=== PATIENT | female | born 1980 | race Caucasian/White ===

== ENCOUNTER 2016-11-22 13:48 | Emergency (ER) | payer OTHER ==
[~2016-11-22] VITALS: Ht 162.6 cm; Wt 72.6 kg
--- NOTE | 2016-11-22 14:33 | RAD ---
Indication injury several days earlier. Pain. AP oblique and lateral views of the left ankle were obtained. No acute or significant bony finding is seen. There is a well-corticated small bone fragment adjacent to the tip of the lateral malleolus having a chronic appearance compatible with an accessory ossification center or labor representative the sequela of an old, healed, injury. IMPRESSION: No acute bony finding
--- NOTE | 2016-11-22 15:01 | PHYS DOC ---
Past History Past Medical History: Arthritis Past Surgical History: Cholecystectomy, Alcohol Use: None Drug Use: None Adult General Chief Complaint Chief Complaint: FOOT INJURY PAIN HPI HPI Patient is a 36 year old F who presents with left ankle pain. Shefali states that she stepped in a hole on Sunday twisting her ankle. She states that she has had mild to moderate pain since that time. She has been able to walk since the injury with a mild limp. She notes swelling over the lateral ankle that worsens throughout the day. She denies numbness or tingling. She has no weakness. She has no rash. She has no other associated symptoms. She has no other exacerbating or alleviating factors. Review of Systems Review of Systems Constitutional: Denies fever or chills [] Eyes: Denies change in visual acuity, redness, or eye pain [] HENT: Denies nasal congestion or sore throat [] Respiratory: Denies cough or shortness of breath [] Cardiovascular: No additional information not addressed in HPI [] GI: Denies abdominal pain, nausea, vomiting, bloody stools or diarrhea [] : Denies dysuria or hematuria [] Musculoskeletal: Denies back pain Integument: Denies rash or skin lesions [] Neurologic: Denies headache, focal weakness or sensory changes [] Endocrine: Denies polyuria or polydipsia [] Family History Family History Noncontributory Current Medications Current Medications Medications reviewed Allergies Allergies Allergies Coded Allergies Type Severity Reaction Last Updated Verified No Known Drug Allergies 11/22/16 No Physical Exam Physical Exam Constitutional: Well developed, well nourished, no acute distress, non-toxic appearance. [] HENT: Normocephalic, atraumatic, Eyes: EOMI, conjunctiva normal, no discharge. [] Cardiovascular:Heart rate regular rhythm, no murmur [] Lungs & Thorax: Bilateral breath sounds clear to auscultation [] Abdomen: Bowel sounds normal, soft, no tenderness, no masses, no pulsatile masses. [] Skin: Warm, dry, no erythema, no rash. [] Extremities: Left ankle: Mild swelling over the lateral malleolus, bruising over the anterior distal lower leg. Tenderness to palpation over these areas. Normal range of motion. 5 out of 5 strength with dorsi and plantarflexion. Neurovascularly intact. Anterior drawer tests negative Neurologic: Alert and oriented X 3, normal motor function, normal sensory function, no focal deficits noted. [] Psychologic: Affect normal, judgement normal, mood normal. [] Current Patient Data Vital Signs Vital Signs Date Time Temp Pulse Resp B/P (MAP) Pulse Ox O2 Delivery O2 Flow Rate FiO2 11/22/16 13:48 98.4 74 20 98 Room Air EKG EKG [] Radiology/Procedures Radiology/Procedures Left ankle x-ray Impressions: No acute disease Course & Med Decision Making Course & Med Decision Making Pertinent Labs and Imaging studies reviewed. (See chart for details) [] Dragon Disclaimer Dragon Disclaimer This chart was dictated in whole or in part using Voice Recognition software in a busy, high-work load, and often noisy Emergency Department environment. It may contain unintended and wholly unrecognized errors or omissions. Departure Departure: Impression: Primary Impression: Left ankle sprain Disposition: HOME, SELF-CARE Condition: STABLE Referrals: TAWNYA CHAPPELL (PCP) Patient Instructions: Ankle Sprain, Acute, with Phase I Rehab-SportsMed Additional Instructions: Shefali was seen in the emergency department for ankle pain. No emergency medical condition was found on history or physical exam. She did have a normal x -ray. Her symptoms are most consistent with an ankle sprain grade she was encouraged to consider lidocaine patches for pain. She was advised to continue daily activity as tolerated. She was advised follow-up with her primary care doctor as needed for further management. Problem Qualifiers Primary Impression: Left ankle sprain Encounter type: initial encounter Involved ligament of ankle: unspecified ligament Qualified Codes: S93.402A - Sprain of unspecified ligament of left ankle, initial encounter PRINCESS RAMIRES MD Nov 22, 2016 15:01
[2016-11-22 15:10] VITALS: BP 110/67
== END 2016-11-22 15:10 | disposition home or self-care (01) ==
LOC: ER 13:48
DX: S93.402A Sprain of unspecified ligament of left ankle, initial encounter (principal); M19.90 Unspecified osteoarthritis, unspecified site; X50.1XXA Overexertion from prolonged static or awkward postures, initial encounter; Y93.89 Activity, other specified; Y99.8 Other external cause status; Y92.89 Other specified places as the place of occurrence of the external cause
CPT/HCPCS: 73610; 99284